=== PATIENT | male | born 2005 | race Caucasian/White ===

== ENCOUNTER 2023-06-10 16:27 | Emergency (ER) | payer MEDICAID, SELFPAY ==
[2023-06-10 16:32] VITALS: BP 158/91; PULSE 101; RESP 21; TEMP 36.6; O2SAT 100; BMI 26.9
--- NOTE | 2023-06-10 16:34 | XRR_ITS ---
PROCEDURE INFORMATION: Exam: XR Chest Exam date and time: 06/10/2023 4:38 PM Age: 17 years old Clinical indication: Shortness of breath and tachypnea; Chest pressure; Patient HX: Mediastinal chest pain; SOB; Anxiety attack TECHNIQUE: Imaging protocol: Radiologic exam of the chest. Views: 1 view. COMPARISON: No relevant prior studies available. FINDINGS: Lungs: Unremarkable. No consolidation. Pleural spaces: Unremarkable. No pleural effusion. No pneumothorax. Heart/Mediastinum: Unremarkable. No cardiomegaly. Bones/joints: Unremarkable. XR/XR chest 1V portable [id number] IMPRESSION: No acute findings.
--- NOTE | 2023-06-10 16:35 | ED_ITS ---
HPI - URI/Sore Throat General: Chief Complaint: Upper Respiratory Infection Stated Complaint: Swollen throat, Vomitting, trouble breathing Time Seen by Provider: 06/10/23 16:29 Source: patient Mode of arrival: ambulatory Limitations: no limitations History of Present Illness: 17-year-old male states that over the last 3 days he has been having a severe sore throat along with some vomiting and fevers. States had some trouble swallowing due to pain slight shortness of breath denies any cough denies any neck pain. Associated symptoms: Reports fever(s), nausea and vomiting; Deny abdominal pain, chills, chest pain, diarrhea or headache(s) Review of Systems Const: Reports: fever(s); Denies: chills, body aches or change in appetite ENMT: Reports: throat pain; Denies: dental pain Card: Denies: chest pain Resp: Reports: dyspnea GI: Reports: nausea and vomiting; Denies: abdominal pain or diarrhea : Denies: dysuria Musc: Denies: neck pain or back pain Skin/Breast: Denies: rash Neuro: Denies: headache(s) Physical Exam Const: COMMON NORMALS: no acute distress, patient oriented x3 and healthy appearing HENMT: COMMON NORMALS: normocephalic and atraumatic HEAD & SCALP: normocephalic and atraumatic OTHER: Erythema along with pus pockets to posterior oropharynx no uvular deviation handling secretions well no signs of abscess. Eye: COMMON NORMALS: Equal, round and reactive pupils present and EOMs intact bilaterally PUPIL: Yes Equal, round and reactive pupils present Neck/C-Spine: COMMON NORMALS: full ROM and supple Chest: COMMONS NORMALS: normal inspection of the chest and normal palpation of entire chest wall Resp: COMMON NORMALS: normal respiratory effort, No retractions, No use of accessory muscles and clear to auscultation bilaterally AUSCULTATION: clear to auscultation bilaterally Cardio: COMMON NORMALS: regular rate, regular rhythm and No murmurs present (Cardio) RATE: regular rate RHYTHM: regular rhythm Extremity: COMMON NORMALS: normal to inspection and full ROM Neuro: COMMON NORMALS: patient oriented x3, moves all extremities and no focal motor deficits Psych: COMMON NORMALS: mental status grossly normal, Normal thought process present and cooperative THOUGHT PROCESS: Normal thought process present Skin: COMMON NORMALS: no rashes or lesions noted and no wounds GENERAL SKIN EXAM: no rashes or lesions noted Course Vital Signs: Vital signs: Vital Signs Temperature 98 F 06/10/23 16:32 Pulse Rate 101 H 06/10/23 16:32 Respiratory Rate 21 H 06/10/23 16:32 Blood Pressure 158/91 06/10/23 16:32 Pulse Oximetry 100 06/10/23 16:32 Oxygen Delivery Me thod Room Air 06/10/23 16:32 MDM - URI/Sore Throat Medical Decision Making Patient presents for sore throat fever exam has a appearance of strep he has no signs of peritonsillar retropharyngeal abscess he is handling his secretions well did give him IV antibiotics along with Decadron and IV fluids. We will prescribe him Zofran and Keflex for home he is return if worsening follow-up with PCP in 3 to 5 days he understands agrees to plan. Medical Records I reviewed the patient's medical records. Lab Data I reviewed the patient's lab results. Radiology Impressions Chest X-Ray 06/10/23 16:34 IMPRESSION: No acute findings. All radiology interpretation(s) finalized by discharge Discharge Plan Discharge Patient Disposition: Home Clinical Impression: Acute streptococcal pharyngitis Condition: Stable Prescriptions: New cephalexin 500 mg capsule 500 mg PO TID 7 Days Qty: 21 0RF ondansetron 4 mg tablet,disintegrating 4 mg PO Q6H PRN (Reason: nausea and vomiting) Qty: 14 0RF Discharge Orders: Discharge ED (Routine); Ordered 06/10/23 Ordered By: Robbin Gardner Referrals: Celeste Gay FNP [Primary Care Provider] - 1-3 days Discharge Diet: Advance as tolerated Discharge Activity: Resume usual activity Patient Instructions: Strep Throat (ED) Stand Alone Forms: Work/School Release Coding Level of Care Code ED Automatic Coil Machine Operator for Aneesh Edge
[2023-06-10] MEDS: sodium chloride 0.9% 1,000 ML 999 ML IV (16:48)
[2023-06-10] MEDS: ketorolac 30 mg/mL INJ IVP (16:50)
[2023-06-10] MEDS: ondansetron 2 mg/ML SDV 2 mL 4 MG IVP (16:51)
[2023-06-10] MEDS: dexamethasone 10 mg/mL INJ IVP (16:52)
[2023-06-10] MEDS: cefTRIAXone 1,000 MG in sodium chloride 0.9% (plus) 50 ML 100 MG IV (16:52)
[2023-06-10 17:38] VITALS: BP 135/80; PULSE 74; O2SAT 99
[2023-06-12 14:44] LABS: Chlamydia Trachomatis RNA TMA NOT DETECTED (NOT DETECTED); Neisseria Gonorrhoeae RNA, TMA NOT DETECTED (NOT DETECTED)
== END 2023-06-10 17:41 | disposition home or self-care (01) ==
PROVIDERS: Emergency Provider Emergency Medicine; PCP Nurse Practitioner Family
DX: J02.0 Streptococcal pharyngitis (principal)
CPT/HCPCS: 71045; 87491; 87591; 96365; 96375; 99284; J0696; J1100; J1885; J2405; J7030

== ENCOUNTER 2025-06-11 12:24 | Emergency (ER) | payer SELFPAY ==
--- OUTSIDE RECORDS SUMMARY | 2025-06-11 12:30 | XMS_ITS | Encounter Summary ---
Author Organization [facility] Address [address] [place] [address] Care Team Providers Care Door Furring Installer Name Role Phone Non-Staff, Physician Primary Care Provider Unava ilable Encounter Details Date Type Department Care Team (Latest Contact Info) Description 08/28/2006 Outpatient Historical [facility] Medicine [place] [address], [place] [address] Solitario Steinberg MD [address], [place] [phone] Open Wound of Lip (Primary Dx) Social History Tobacco Use Types Packs/Day Years Used Date Smoking Tobacco: Never Assessed Sex and Gender Information Value Date Recorded Sex Assigned at Not on file 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
--- OUTSIDE RECORDS SUMMARY | 2025-06-11 12:30 | XMS_ITS | Encounter Summary ---
Author Organization [facility] Address [address] [place] [address] Care Team Providers Care Mexican Food Machine Tender Name Role Phone Non-Staff, Physician Primary Care Provider Unava ilable Encounter Details Date Type Department Care Team (Latest Contact Info) Description 04/18/2005 Outpatient Historical [facility] [place] [address] [place] [address] Gio Zhang MD NO ADDRESS ON FILE Routine child health exam (Primary Dx) Social History Tobacco Use Types Packs/Day Years Used Date Smoking Tobacco: Never Assessed Sex and Gender Information Value Date Recorded Sex Assigned at Not on file 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
--- OUTSIDE RECORDS SUMMARY | 2025-06-11 12:30 | XMS_ITS | Encounter Summary ---
Author Organization [facility] Address [address] [place] [address] Care Team Providers Care Celery Tier Name Role Phone Non-Staff, Physician Primary Care Provider Unava ilable Encounter Details Date Type Department Care Team (Latest Contact Info) Description 07/09/2006 Outpatient Historical [facility] Medicine [place] [address] [place] [phone] Diane Hernandez, [facility] [address] [phone] Unspecified Mastoiditis (Primary Dx) Social History Tobacco Use Types Packs/Day Years Used Date Smoking Tobacco: Never Assessed Sex and Gender Information Value Date Recorded Sex Assigned at Not on file 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
--- OUTSIDE RECORDS SUMMARY | 2025-06-11 12:30 | XMS_ITS | Encounter Summary ---
Author Organization [facility] Address [address] [place] [address] Care Team Providers Care Dust Collector Ore Crushing Name Role Phone Non-Staff, Physician Primary Care Provider Unava ilable Encounter Details Date Type Department Care Team (Latest Contact Info) Description 10/24/2005 Outpatient Historical [facility] 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
--- OUTSIDE RECORDS SUMMARY | 2025-06-11 12:30 | XMS_ITS | Encounter Summary ---
Author Organization [facility] Address [address] [place] [address] Care Team Providers Care It Operations Analyst Name Role Phone Non-Staff, Physician Primary Care Provider Unava ilable Encounter Details Date Type Department Care Team (Latest Contact Info) Description 10/24/2005 Outpatient [facility] Nose [facility] Thro[facility] 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
--- OUTSIDE RECORDS SUMMARY | 2025-06-11 12:30 | XMS_ITS | Clinical Summary ---
Author Organization [facility] Address [address] Bestn: Epic Prelude ADT MIKE TORRES [address] Care Team Providers Care Paste Thinner Name Role Phone Alfonso Cruz MD Primary Care Provider [phone] Allergies No known active allergies Medications ALLERGY RELIEF 10 mg tablet Take 10 mg by mouth daily. 3 Active DULoxetine 40 mg Capsule, Delayed Release(E.C.)In dications:Mixed anxiety and depressive disorder Take 40 mg by mouth daily. 90 Capsule 1 4 Active albuterol sulfate HFA 90 mcg/actuation aerosol inhaler Take 2 Puffs by inhalation every 6 hours as needed for Shortness of Breath or Wheezing. 8.5 Gram 1 5 Active methylPREDNISol one (MEDROL DOSPACK) 4 mg Tablets, Dose Pack As directed 21 Tablet 5 Active Active Problems No known active problems Encounters Date Type Department Care Team Description 06/09/2025 Nurse Triage [address] [phone] Alfonso Cruz MD 05/19/2025 External Device Data [facility] ABSTRACTION Provider, Abstract 04/14/2025 External Device Data [facility] ABSTRACTION Provider, Abstract from Last 3 Months Immunizations Immunization Administration Dates Next Due (M-M-R II/PRIORIX)(12 MO UP) MEASLES, MUMPS AND RUBELLA VIRUS VACCINE, 0.5 ML IM/SUBCUT 04/01/2009 (VARIVAX)(12 MOS UP)VARICELL A VIRUS VACCINE (PF) 0.5 ML, SUB CUT 04/01/2009 Dt Dtp Dtap Vaccine 04/18/2005 HIB, Unspecified Formulation 12/19/2006 INFLUENZA VACCINE TRIVALENT SPLIT VIRUS, (6 MOS UP), 0.5ML (PF), IM 07/09/2024 Pneumococcal 7-valent conjugate vaccine IM 12/19,04/18/2005 Family History Medical History Relation Name Comments Amblyopia Neg Hx Blindness Neg Hx Cataract Neg Hx Corneal Dystrophies Neg Hx Detachment/Tears Neg Hx Glaucoma Neg Hx Keratoconus Neg Hx Macular Degen Neg Hx Strabismus Neg Hx Social History Tobacco Use Types Packs/Day Years Used Date Smoking Tobacco: Never Smokeless Tobacco: Never Tobacco Cessation:Counseling Given: Not Answered Alcohol Use Standard Drinks/Week Comments Never 0 (1 standard drink = 0.6 oz pur e alcohol) Sex and Gender Information Value Date Recorded Sex Assigned at Not on file Legal Sex Male 10:08 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 Gender Identity Not on file Sexual Orientation Not on file Last Filed Vital Signs Vital Sign Reading Time Taken Comments Blood Pressure 137/75 07/09/2024 12:21 PM CYBER SYSTEMS 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 Pulse 84 07/09/2024 12:21 PM CYBER SYSTEMS 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 Temperature 37.1 C (98.7 F) 07/09/2024 12:21 PM CYBER SYSTEMS 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 Respiratory Rate 18 07/09/2024 12:21 PM CYBER SYSTEMS 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 Oxygen Saturation 100% 07/09/2024 12:21 PM CYBER SYSTEMS 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 Inhaled Oxygen Concentration - - Weight 92.8 kg (204 lb 9.6 oz) 07/09/2024 12:21 PM CYBER SYSTEMS 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 Height 193 cm (6' 4 ) 07/09/2024 12:21 PM CYBER SYSTEMS 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 Body Mass Index 24.9 07/09/2024 12:21 PM CYBER SYSTEMS 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 Plan of Treatment Upcoming Encounters Date Type Department Care Team (Late st Contact Info) Description 06/11/2025 2:20 PM CYBER SYSTEMS 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 Office Visit [facility] Medicine [place] [address] [phone] Alfonso Cruz MD [address] [place] [phone] Health Maintenance Due Date Last Done Comments HPV VACCINES (1 - Male 3-dose series) 10/13/2018 DTAP/TDAP/TD VACCINES (2 - Tdap) 10/13/2022 09/20/20 05 HEPATITIS B VACCINES (1 of 3 - 19+ 3-dose series) 09/27 Preventative Visit- Commercial 07/30/2024 06/12/2024 INFLUENZA VACCINE (#1) 2025 07/09/2024 Insurance [facility] [email or web address] ACCESS CHOICE Care Teams Paste Thinner Relationship Specialty Start Date End Date Alfonso Cruz MD [address] [place] [phone] PCP - General Family Practice 06/11/24
--- OUTSIDE RECORDS SUMMARY | 2025-06-11 12:30 | XMS_ITS | Clinical Summary ---
Author Organization [facility] Address [address] [address] Care Team Providers Care Senior Staff Consultant Name Role Phone Non-Staff, Physician Primary Care Provider Unava ilable Allergies No known active allergies Medications No known medications Active Problems No known active problems Immunizations Immunization Administration Dates Next Due (M-M-R II/PRIORIX)(12 MO UP) MEASLES, MUMPS AND RUBELLA VIRUS VACCINE, 0.5 ML IM/SUBCUT 04/01/2009 (VARIVAX)(12 MOS UP)VARICELL A VIRUS VACCINE (PF) 0.5 ML, SUB CUT 04/01/2009 Dt Dtp Dtap Vaccine 04/18/2005 HIB, Unspecified Formulation 12/19/2006 Pneumococcal 7-valent conjugate vaccine IM 12/19,04/18/2005 Family History Medical History Relation Name Comments Amblyopia Neg Hx Blindness Neg Hx Cataract Neg Hx Corneal Dystrophies Neg Hx Detachment/Tears Neg Hx Glaucoma Neg Hx Keratoconus Neg Hx Macular Degen Neg Hx Strabismus Neg Hx Social History Tobacco Use Types Packs/Day Years Used Date Smoking Tobacco: Never Smokeless Tobacco: Never Sex and Gender Information Value Date Recorded Sex Assigned at Not on file 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 Gender Identity Not on file Sexual Orientation Not on file Last Filed Vital Signs Vital Sign Reading Time Taken Comments Blood Pressure 112/74 03/15/2017 9:41 AM CDT Pulse - - Temperature - - Respiratory Rate - - Oxygen Saturation - - Inhaled Oxygen Concentration - - Weight 53.1 kg (117 lb) 03/15/2017 9:41 AM CDT Height 165.1 cm (5' 5 ) 03/15/2017 9:41 AM CDT Body Mass Index 19.47 03/15/2017 9:41 AM CDT Plan of Treatment Health Maintenance Due Date Last Done Comments HPV VACCINES (1 - Male 3-dose series) 10/13/2018 DTAP/TDAP/TD VACCINES (2 - Tdap) 10/13/2022 04/18/20 05 HEPATITIS B VACCINES (1 of 3 - 19+ 3-dose series) 09/27 INFLUENZA VACCINE (#1) [address] [place] [address] MOUNIKA Care Teams Senior Staff Consultant Relationship Specialty Start Date End Date Non-Staff, Physician NO ADDRESS ON FILE PCP - General 08/02/07
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
[2025-06-11 12:38] VITALS: BP 126/74; PULSE 87; RESP 18; TEMP 36.7; O2SAT 97
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
== END 2025-06-11 12:57 | disposition home or self-care (01) ==
PROVIDERS: Emergency Provider Emergency Medicine
DX: Z04.1 Encounter for examination and observation following transport accident (principal)
CPT/HCPCS: 99281